=== PATIENT | female | born 1965 | race Two or more races ===

== ENCOUNTER 2025-04-25 08:52 | Outpatient (AMB) | payer OTHER, SELFPAY ==
--- OUTSIDE RECORDS SUMMARY | 2025-04-25 09:24 | XMS_ITS | Data Portability ---
Author Organization BEATRICE Kedar Howard [facility], [facility] [place] Address [address] [place] [address] Care Team Providers Care Breast Splitter Name Role Phone [facility] Primary Care Provide r Assessment Encounter Date Assessment Date Assessment LastModified by Organization Details LastModified Time 12/14/2024 12/14/2024 Assessment: Making steady improvements but still noted weakness with hip ABD. Improving step mechanics with slightly decreased antalgia with gait Plan: Continue with PT at 2x/week focusing on decreasing pain, improving ROM, strength, optimizing gait and stair mechanics, and mobility for functional ADL's. [email or web address] Not available 12/14/2024 10:38:13 12/16/2024 12/16/2024 Assessment: Making steady improvements but still noted weakness with hip ABD. Improving step mechanics with slightly decreased antalgia with gait. improving SLS balance Plan: Continue with PT at 2x/week focusing on decreasing pain, improving ROM, strength, optimizing gait and stair mechanics, and mobility for functional ADL's. [email or web address] Not available 12/16/2024 10:19:22 12/21/2024 12/21/2024 Assessment: Making good steady progress improving ROM and functional strength, some rigidity and cautiousness with stairs but able to asc/desc safely Plan: Continue with PT at 2x/week focusing on decreasing pain, improving ROM, strength, optimizing gait and stair mechanics, and mobility for functional ADL's. [email or web address] Not available 12/21/2024 09:43:49 12/23/2024 12/23/2024 Assessment: Making good steady progress improving ROM and functional strength, some rigidity and cautiousness with stairs but able to asc/desc safely Plan: Continue with PT at 2x/week focusing on decreasing pain, improving ROM, strength, optimizing gait and stair mechanics, and mobility for functional ADL's. Finish out Appts [email or web address] Not available 12/23/2024 09:35:56 Plan of Treatment Reminders Order Date Submit Date Provider Last Modified By Organization Details Last Modified Time Details Appointments None recorded. Lab None recorded. Referral None recorded. Procedures None recorded. Surgeries None recorded. Imaging XR, shoulder, 2 or more view - room 215 bilateral shoulder/ lateral [facility]24 [facility]25 [facility] [address], [place], [address], 5 15:29:39 XR, cervical spine, 1 view - room 215 lateral cervical 2024 025 [facility], [address], [address], [place], [address], 5 15:29:39 Medication Orders None recorded. Patient TargetsNo targets recorded. Patient InstructionsNo instructions recorded. Reason for Referral None Reported. Results Created Date Observation Date Name Description Value Unit Range Abnormal Flag Note LastModifiedBy Organization Detail LastModifiedTime 12/03/19 25 12/03/2024 XR, knee, 4 or more view [email or web address]:/ [email or web address] ?Encry pted=s hAaTro YD8dLq bEUv6g %2BXZw aYqtaq 0bqfl% 2Fg9IQ a4ajBk vP9nXo QUaueC m3YtLR FvZlgJ JJ8mAn HZtai3 5o6888 AC0Kqb H%2BGU 6ShKiQ trMwF INTERFACE [facility] [address], [place], [address], 12/03/2024 08:28:10 12/03/19 25 12/03/2024 XR, knee, 4 or more view [email or web address] ?Encry pted=s hAaTro YD8dLq bEUv6g %2BXZw aYqtaq 0bqfl% 2Fg9IQ a4ajBk vP9nXo QUaueC m3YtLR FvZlg JJ8[place] HZtai3 8p4363 AC0Kqb H%2BGU 6ShKiQ trMwF INTERFACE [facility] [address], [place], [address], 12/03/2024 08:28:12 12/06/19 25 12/06/2024 XR, hip + pelvi s, bilat eral, 2 view [email or web address]:/ [email or web address] ?Encry pted=s hAaTro YD8dLq bEUv6g %2BXZw aYqtaq 0bqfl% 2Fg9IQ a4ajBk vP9nXo QUaueC m3YtLR FvZlg JJ8[place] HZtai3 6v9140 AC0Kqb H6HUqK uKiQtr MwF INTERFACE [facility] [address], [place], [address], 12/06/2024 10:12:31 12/06/19 25 12/06/2024 XR, hip + pelvi s, bilat eral, 2 view [email or web address] ?Encry pted=s hAaTro YD8dLq bEUv6g %2BXZw aYqtaq 0bqfl% 2Fg9IQ a4ajBk vP9nXo QUaueC m3YtLR FvZl JJ8mAn HZtai3 1g3446 AC0Kqb H6HUqK uKiQtr MwF INTERFACE [facility] [address] [facility], [place], [address], 12/06/2024 10:12:33 03/22/20 25 03/22/2025 XR, marizta castellanos, 2 or more view http:/ [email or web address] ?Encry pted=s hAaTro YD8dLq bEUv6g %2BXZw aYqtaq 0bqfl% 2Fg9IQ a4ajBk vP9nXo QUaueC m3YtLR FvZlgJ [facility] Hospital[facility] 6u9902 AC0Kla 3%2BNU KuhKiQ trMwF INTERFACE [facility] [address], [place], [address], 03/22/2025 10:02:52 03/22/20 25 03/22/2025 XR, maritza jasmin, 2 or more view [email or web address]:/ [email or web address] ?Encry pted=s hAaTro YD8dLq bEUv6g %2BXZw aYqtaq 0bqfl% 2Fg9IQ a4ajBk vP9nXo QUaueC m3YtLR FvZlgJ JJ8[place] HZtai3 3f6395 AC0Kla 3%2BNU KuhKiQ trMwF INTERFACE [facility] [address], [place], [address], 03/22/2025 10:02:54 03/22/20 25 03/22/2025 XR, cervi chiquis spine , 1 view [email or web address]:/ [email or web address] ?Encry pted=s hAaTro YD8dLq bEUv6g %2BXZw aYqtaq 0bqfl% 2Fg9IQ a4ajBk vP9nXo QUaueC m3YtLR FvZl46 [address] Streettai3 3x5029 AC0Kla 3%2BNU KuuKiQ trMwF INTERFACE [facility] [address], [place], [address], 03/22/2025 10:03:20 03/22/20 25 03/22/2025 XR, cervi chiquis spine , 1 view [email or web address]:/ [email or web address] ?Encry pted=s hAaTro YD8dLq bEUv6g %2BXZw aYqtaq 0bqfl% 2Fg9IQ a4ajBk vP9nXo QUaueC m3YtLR FvZlgJ JJ8mAn HZtai3 3j3130 AC0Kla 3%2BNU KuuKiQ trMwF INTERFACE [facility] [address] [facility] [address], [place], [address], 03/22/2025 10:03:22 Result Notes Documentation Provider Name and Address Organization Details Recorded Time Xr, Shoulder, 2 Or More View : [email or web address]? Encrypted=crTgMsnQH0lThfW Uv6g%2PNOjdWmzcj1owfb%2Fg 3IPe5daCjsT6rDuTKrpuEb2Qa RWViPluRCX7lAhEZzpu06i450 9VW6Tmu1%2BNUKuhKiQtrMwF Not Available [facility] 03/22/2025 10:0 2:53 Xr, Shoulder, 2 Or More View : [email or web address]? Encrypted=swCyVtfOS1aKtiG Uv6g%2OFXmfMcmfr1jcjh%2Fg 5LBi2szQllF3sTfIZdboWg0Kg VYVkTckOGJ2mPqSEibg81e494 3FX6Mdl1%2BNUKuhKiQtrMwF Not Available [facility] 03/22/2025 10:0 2:55 Xr, Cervical Spine, 1 View : [email or web address]? Encrypted=dlDnCdnYT8qCnkP Uv6g%0LMVybAwojp3wswh%2Fg 7HFm7gbIybD5qGnFAqpyYz4Xf SJZpLqvUQY6nBcPSvuw78j256 7ZN4Qps2%2BNUKuuKiQtrMwF Not Available [facility] 03/22/2025 10:0 3:21 Xr, Cervical Spine, 1 View : [email or web address]? Encrypted=gyGcFllCX6lZwbF Uv6g%6RZMacAoiyt0syrt%2Fg 6BIj4fwHqaA1lWgILiqiNj1Ab KMMzLfrGZB6eGaLKoyc77v067 4MK6Xfc8%2BNUKuuKiQtrMwF Not Available [facility] 03/22/2025 10:0 3:22 Problems Name Problem SNOMED Code Status Onset Date Resolution Date Notes Provider Name and Address Organization Details Recorded Time No complaints 813086241 Active Status : 'A'; Not Available [facility] 4 09:12:15 Pain of shoulder region 43721891 Active 2024 Jerel Malik PA-C [address], [place], [address] , [facility] 5 09:51:56 Problem Notes None recorded. Procedures Surgical History Date Name Laterality Status Provider Name and Address Organization Details Recorded Time 5 44864 Therapeutic Exercise (1:1) completed Peri Ponce PTA [address], [place], [address], [facility] 12/14/2024 18:26:56 5 69175: Gait training completed Peri Ponce PTA [address], [place], [address], [facility] 12/14/2024 18:26:56 5 80718 Therapeutic Exercise (1:1) completed Peri Ponce PTA [address], [place], [address], [facility] 12/13/2024 07:01:17 5 63089: Gait training completed Peri Ponce PTA [address], [place], [address], [facility] 12/13/2024 07:01:17 5 09885 Therapeutic Exercise (1:1) cancelled Peri Ponce PTA [address], [place], [address], [facility] 12/07/2024 18:16:19 02/06/202 5 85780: Gait training cancelled Peri Ponce ESTIMATOR AND DRAFTER [address], [place], [address], [facility] 12/07/2024 18:16:19 TOMY INJ Andrew completed Stewart Linares PA-C [address], [place], [address], [facility] 12/03/2024 08:37:11 5 97442 Therapeutic Exercise (1:1) completed Peri Kris ESTIMATOR AND DRAFTER [address], [place], [address], [facility] 11/30/2024 14:30:40 5 94197: Gait training completed Peri Ponce ESTIMATOR AND DRAFTER [address], [place], [address], [facility] 11/30/2024 14:30:40 5 56531 Therapeutic Exercise (1:1) completed Peri Kris ESTIMATOR AND DRAFTER [address], [place], [address], [facility] 11/29/2024 07:07:43 5 86447: Gait training completed Peri MALENA Ponce [address], [place], [address], [facility] 11/29/2024 07:07:43 5 22492 Therapeutic Exercise (1:1) completed Peri Kris ESTIMATOR AND DRAFTER [address], [place], [address], [facility] 11/24/2024 10:39:30 20085: Gait training completed Perijuan Ponce ESTIMATOR AND DRAFTER [address], [place], [address], [facility] 11/24/2024 10:39:30 5 68915 Therapeutic Exercise (1:1) cancelled Peri Ponce, ESTIMATOR AND DRAFTER [address], [place], [address], [facility] 11/18/2024 18:34:48 5 03754: Gait training cancelled Peri MALENA Ponce [address], [place], [address], [facility] 11/18/2024 18:34:48 5 05165 Therapeutic Exercise (1:1) completed Peri Ponce PTA [address], [place], [address], [facility] 11/16/2024 14:37:55 5 93991: Gait training completed Peri Ponce PTA [address], [place], [address], [facility] 11/16/2024 14:37:55 5 36738 Therapeutic Exercise (1:1) completed Peri Ponce PTA [address], [place], [address], [facility] 11/15/2024 06:50:34 5 92398: Gait training completed Peri Ponce PTA [address], [place], [address], [facility] 11/15/2024 06:50:34 5 84586 Therapeutic Exercise (1:1) completed Nain Romero PT [address], [place], [address], [facility] 11/07/2024 18:28:21 5 24208: Gait training completed Nain Romero PT [address], [place], [address], [facility] 11/07/2024 18:28:21 5 65558 Therapeutic Exercise (1:1) completed Nain Romero PT [address], [place], [address], [facility] 11/07/2024 17:07:38 5 19528: Gait training completed Nain Romero PT [address], [place], [address], [facility] 11/07/2024 17:07:51 4 49272 Therapeutic Exercise (1:1) completed NISH StokesT [address], [place], [address], [facility] 11/02/2024 10:05:23 4 99047: Low complexity PT Eval completed Victorino Verde DPMario [address], [place], [address], [facility] 11/02/2024 10:05:25 4 41543 Therapeutic Exercise (1:1) completed Nain Romero PT [address], [place], [address], [facility] 09/14/2024 12:20:32 4 26271: Low complexity PT Eval completed Nain Romero PT [address], [place], [address], [facility] 09/14/2024 12:20:35 4 JZHip completed Mp Vela PA-C [address], [place], [address], [facility] 07/13/2024 07:49:14 4 Hip Kenalog Injection, L/R w/US completed Mp Vela PA-C [address], [place], [address], [facility] 02/04/2024 15:44:33 Imaging Results None recorded. Procedure Notes None recorded. Medical Equipment None Reported. Allergies No known drug allergies Medications Name Sig Start Date Stop Date Status Note LastModified by Organization Details LastModified Time amoxicillin 500 mg capsule 4 pills 1 hour prior to procedure 2024 active Not Available Not Available Not Avai lable Vitamin B-2 100 mg tablet TAKE 2 TABLETS BY MOUTH TWICE DAILY WITH MEALS FOR HEADACHE active Not Available Not Available No t Available atorvastati n 20 mg tablet TAKE 1 TABLET BY MOUTH EVERY DAY active Not Available Not Available No t Available trazodone 50 mg tablet TAKE 1 TO 2 TABLETS BY MOUTH AT BEDTIME NEEDED FOR SLEEP 10/26 completed Not Available Not Available Not Available triamcinolo ne acetonide 0.5 % topical cream APPLY TOPICALLY TO THE AFFECTED AREA TWICE DAILY active Not Available Not Available No t Available cetirizine 10 mg tablet TAKE 1 TABLET BY MOUTH EVERY DAY active Not Available Not Available No t Available ondansetron HCl 4 mg tablet TAKE 1 TABLET BY MOUTH EVERY 8 HOURS NEEDED FOR NAUSEA 02/04 completed Not Available Not Available Not Available Medrol (Alpesh) 4 mg tablets in a dose pack take as directed 08/10 completed Not Available Not Available Not Available prednisone 20 mg tablet TAKE 3 TABLETS BY MOUTH EVERY DAY FOR 2 DAYS 02/04 completed Not Available Not Available Not Available cromolyn 4 % eye drops INSTILL 1 DROP INTO AFFECTED EYE FOUR TIMES A DAY active Not Available Not Available No t Available sumatriptan 50 mg tablet TAKE 1 TABLET BY MOUTH NEEDED FOR MIGRAINE. MAY REPEAT DOSE UP TO 1 TIME AFTER 2 HOURS NEEDED 10/26 completed Not Available Not Available Not Available valacyclovi r 500 mg tablet TAKE 1 TABLET BY MOUTH DAILY 10/26 completed Not Available Not Available Not Available sulfamethox azole 800 mg-trimetho prim 160 mg tablet TAKE 1 TABLET BY MOUTH TWICE DAILY 02/04 completed Not Available Not Available Not Available tramadol 50 mg tablet Take 1-2 tablets every 8 hours as needed for mild to moderate pain. 2024 active Not Available Not Available Not Avai lable acetaminoph en 500 mg tablet TAKE 1 TABLET BY MOUTH EVERY 6 HOURS NEEDED active Not Available Not Available No t Available Celebrex 200 mg capsule Take 1 capsule every day by oral route as directed for 33 days. 2023 active Not Available Not Available Not Avai lable oxycodone-a cetaminophe n 5 mg-325 mg tablet TAKE 1 TABLET BY MOUTH EVERY 4-6 HOURS NEEDED FOR PAIN. 02/04 completed Not Available Not Available Not Available famotidine 20 mg tablet TAKE 1 TABLET BY MOUTH DAILY AT BEDTIME NEEDED active Not Available Not Available No t Available magnesium oxide 400 mg (241.3 mg magnesium) tablet TAKE 1 TABLET BY MOUTH DAILY NEEDED active Not Available Not Available No t Available trazodone 100 mg tablet TAKE 1 TO 2 TABLETS BY MOUTH AT BEDTIME NEEDED FOR SLEEP active Not Available Not Available No t Available omeprazole 20 mg capsule,del ayed release TAKE 1 CAPSULE BY MOUTH TWICE DAILY 30 MINUTES BEFORE A MEAL active Not Available Not Available No t Available hydroxyzine HCl 25 mg tablet TAKE 1 TO 2 TABLETS BY MOUTH TWICE DAILY NEEDED FOR SLEEP OR ANXIETY active Not Available Not Available No t Available polyethylen e glycol 3350 17 gram/dose oral powder TAKE 1 SCOOP MIXED WITH 8 OUNCES OF FLUID ONCE A DAY active Not Available Not Available No t Available estradiol 0.01% (0.1 mg/gram) vaginal cream USE 1 GRAM VAGINALLY EVERY NIGHT FOR 2 WEEKS THEN USE VAGINALLY 2 TIMES EVERY WEEK active Not Available Not Available No t Available albuterol sulfate HFA 90 mcg/actuati on aerosol inhaler INHALE 2 PUFFS BY MOUTH EVERY 4 HOURS FOR 16 DAYS 08/10 completed Not Available Not Available Not Available ondansetron 4 mg disintegrat ing tablet DISSOLVE 1 TABLET ON THE TONGUE EVERY 8 HOURS FOR 3 DAYS NEEDED FOR NAUSEA OR VOMITING 10/26 completed Not Available Not Available Not Available topiramate 100 mg tablet TAKE 1 TABLET BY MOUTH TWICE DAILY active Not Available Not Available No t Available fluticasone propionate 50 mcg/actuati on nasal spray,suspe nsion active Not Available Not Available Not Available simethicone 80 mg chewable tablet TAKE 1 TABLET BY MOUTH FOUR TIMES DAILY AFTER MEALS AND AT BEDTIME NEEDED FOR GAS active Not Available Not Available No t Available oxycodone 5 mg tablet Take 1 tablet every 8 hours as needed for severe pain. 2024 active Not Available Not Available Not Avai lable escitalopra m 10 mg tablet TAKE 1 AND 1/2 TABLETS BY MOUTH EVERY DAY active Not Available Not Available No t Available escitalopra m 20 mg tablet TAKE 1 TABLET BY MOUTH DAILY active Not Available Not Available No t Available cyclobenzap rine 5 mg tablet TAKE 1 TABLET BY MOUTH THREE TIMES DAILY FOR 10 DAYS NEEDED active Not Available Not Available No t Available escitalopra m 5 mg tablet TAKE 1 TABLET BY MOUTH EVERY DAY 02/04 completed Not Available Not Available Not Available trospium 20 mg tablet TAKE 1 TABLET BY MOUTH TWICE DAILY 10/26 completed Not Available Not Available Not Available Flovent HFA 220 mcg/actuati on aerosol inhaler INHALE 1 PUFF BY MOUTH TWICE DAILY active Not Available Not Available No t Available Symbicort 80 mcg-4.5 mcg/actuati on HFA aerosol inhaler INHALE 2 PUFFS BY MOUTH ONCE DAILY TAKE 1 PUFF BY MOUTH EVERY 6 HOURS IF NEEDED MAX OF 6 PUFFS PER DAY active Not Available Not Available No t Available trospium ER 60 mg capsule,ext ended release 24 hr TAKE 1 CAPSULE BY MOUTH DAILY IN THE MORNING active Not Available Not Available No t Available diclofenac 1 % topical gel APPLY 2-3 GRAMS TO FOOT/JUAN THREE TIMES DAILY active Not Available Not Available No t Available Align (B.infantis ) 4 mg capsule TAKE 1 CAPSULE BY MOUTH EVERY DAY active Not Available Not Available No t Available oxycodone HCl-oxycodo ne-ASA 1 every 4 - [address] WHILE TAKING THIS MEDICATIO N 06/25 completed Statu s: 'Disc ontin ued'; Not Available Not Available Not Available GaviLyte-G 236 gram-22.74 gram-6.74 gram-5.86 gram oral solution MIX AND DRINK DIRECTED active Not Available Not Available No t Available Myrbetriq 25 mg tablet,exte nded release TAKE 1 TABLET BY MOUTH DAILY active Not Available Not Available No t Available Vitals Date Recorded Body height Body mass index (BMI) Body weight Provider Name and Address Organization Details Last Updated DateTime 03/22/2025 172.72 cm 30.4 kg/m2 50311.47 g Jerel Malik PA-C [address] [facility] [address], [place], [address], [place] [facility] 03/22/2025 09:51:25 Social History Question Answer Notes LastModified by Organizat ion Details LastModified Time Tobacco Smoking Status Never Smoker SHALINI hussein [place] [facility] 02/05/2024 08:42:53 What Is Your Relationship Status? Single Information not available 02/05/2024 Sex: Unknown Functional Status Question Answer Note LastModified by Organizat ion Details LastModified Time Do you use any illicit or recreational drugs? No Information not available 02/05/2024 Do you or have you ever used any other forms of tobacco or nicotine? No Information not available 02/05/2024 What is your level of alcohol consumption? None Information not available 02/05/2024 Mental Status None recorded. Family History Nothing Reported. Medical History Condition Response Coronary Artery Disease N Anxiety/Depression Y Emphysema N COPD N Pacemaker N Vascular Disease N Gastrointestinal Disease N Autoimmune disease N Orthotics N Arthritis Y Blood Clot N Acid Reflux (GERD) Y Cancer N Stroke N Rheumatoid Arthritis N Arrhythmia N Fibromyalgia N Allergies/Hayfever Y Thyroid Problems N Kidney/Bladder Problems N Anemia N Heart Attack ([place]) N Diabetes N Bleeding Disorder N Seizures/Epilepsy N AIDS/HIV N Congestive Heart Failure (CHF) N Asthma Y Peripheral Vascular Disease N Sleep Apnea N Hepatitis Y Heart Disease N Pulmonary Embolism N Hypertension N Osteoporosis N Gynecological HistoryNo gynecological history recorded. Obstetrics History GPAL:G 0 P 0 0 0 0 Past Encounters Encounter ID Performer Location Encounter Start Date Encounter Closed Date Diagnosis/Indication Diagnosis SNOMED-CT Code Diagnosis ICD10 Code Diagnosis Note [id number] PRATIBHA [facility] [address] [place] [address] 02/05/2024 08:21:26 02/05/2024 09:23:44 Osteoarthritis of left hip joint 1959739842 10216 M16.12 [id number] PRATIBHA Valenzuela [address] [place] [address] 03/04/2024 11:10:27 03/24/2024 16:17:15 Osteoarthritis of left hip joint 2562139008 37944 M16.12 [id number] PRATIBHA Valenzuela [address] [place] [address] 05/07/2024 08:58:41 06/16/2024 07:17:58 Osteoarthritis of left hip joint 8270647550 23861 M16.12 [id number] Mp Dane, PA-C [facility] [address] [place] [address] 07/13/2024 10:37:18 08/05/2024 15:51:04 Osteoarthritis of left hip joint 7359820697 78287 M16.12 [id number] Jerel Ospina MD [facility] [address] [place] [address] 08/10/2024 11:43:57 09/02/2024 12:57:29 Osteoarthritis of left hip joint 3660776406 26798 M16.12 [id number] Nain Romero, PT [facility] [address] [place] [address] 09/14/2024 13:09:05 09/14/2024 13:59:39 Osteoarthritis of hip 636053538 6.12 [id number] Alexy Sanches, WINDOWS SOFTWARE ENGINEER [facility] [address] [place] [address] 10/06/2024 07:55:31 11/05/2024 04:07:05 Osteoarthritis of left hip joint 6839039967 42648 M16.12 [id number] Victorino Verde , DPT [facility] [address] [place] [address] 11/01/2024 11:04:18 11/01/2024 12:03:44 Aftercare [id number] Z47.1 Z96.744 [id number] Alban Sanchez PA-C [facility] [address] [place] [address] 11/02/2024 08:37:29 11/17/2024 15:11:57 History of repair of hip joint 354895742 Z96.282 [id number] Nain Romero, PT [facility] [address] [place] [address] 11/05/2024 13:00:30 11/05/2024 15:52:03 Aftercare [id number] Z47.1 Z96.527 [id number] Nain Romero, PT [facility] [address] [place] [address] 11/08/2024 12:36:15 11/09/2024 06:47:07 Aftercare [id number] Z47.1 Z96.024 [id number] Peri Ponce, ESTIMATOR AND DRAFTER [facility] [address] [place], [place] [address] 11/16/2024 12:14:03 11/16/2024 13:06:48 Aftercare [id number] Z47.1 Z96.904 [id number] Peri Ponce, ESTIMATOR AND DRAFTER [facility] [address] [place], [place] [address] 11/18/2024 11:22:31 11/18/2024 12:18:38 Aftercare [id number] Z47.1 Z96.174 [id number] Peri Ponce, ESTIMATOR AND DRAFTER [facility] [address] [place] [address] 11/26/2024 09:59:08 11/26/2024 10:25:01 Aftercare [id number] Z47.1 Z96.383 [id number] Peri Ponce, ESTIMATOR AND DRAFTER [facility] [address] [place] [address] 11/30/2024 11:26:09 11/30/2024 13:31:09 Aftercare [id number] Z47.1 Z96.980 [id number] Peri Ponce, ESTIMATOR AND DRAFTER [facility] [address] [place] [address] 12/02/2024 11:32:11 12/02/2024 12:53:43 Aftercare [id number] Z47.1 Z96.155 [id number] Stewart Linares PA-C [facility] [address] [place] [address] 12/03/2024 08:15:35 12/16/2024 15:38:48 Pain of knee region [id number] M25.561 M25.269 [id number] Jerel Ospina MD [facility] - [facility] [address] [place] [address] 12/06/2024 09:28:29 12/16/2024 09:10:28 History of repair of hip joint [id number] Z96.250 [id number] Peri Ponce ESTIMATOR AND DRAFTER [facility] [address] [place] [address] 12/14/2024 09:19:24 12/14/2024 11:49:30 Aftercare [id number] Z47.1 Z96.111 [id number] Peri Ponce ESTIMATOR AND DRAFTER [facility] [address] [place] [address] 12/16/2024 09:28:06 12/16/2024 10:29:43 Aftercare [id number] Z47.1 Z96.864 [id number] Peri Ponce ESTIMATOR AND DRAFTER [facility] [address] [place] [address] 12/21/2024 08:51:50 12/21/2024 11:16:56 Aftercare [id number] Z47.1 Z96.404 [id number] Peri Ponce ESTIMATOR AND DRAFTER [facility] [address] [place] [address] 12/23/2024 08:46:23 12/23/2024 09:52:40 Aftercare [id number] Z47.1 Z96.264 [id number] Jerel Malik PA-C [facility] [address] [place] [address] 03/22/2025 09:27:13 03/24/2025 15:29:39 Pain of shoulder region [id number] M25.511 M25.512 Health Concerns Section Related Observation LastModified by Organization Detai ls LastModified Time None Recorded Concern Status LastModified by Organization Details LastModified Time None Recorded Advance Directives Directive None Recorded Payers Insurance Date Sequence Insurance Name Policy Number Policy Witt Covered Member ID Witt Member ID Guarantor Name 03/22/2025 1 [facility] - DOS ON OR AFTER 2023 - ONE CARE (MEDICARE REPLACEMENT/ADV ANTAGE - HMO) Eryn Quiñonez [id number] Eryn Quiñonez Notes Date Note Type Note Provider Name and Address Organization Details Recorded Time 12/14/2024 text/html Pt reports 3/10 px in hip. Saw , happy with progress and will see her for an annual appt.Pt reports she is still having difficulty with sleeping on L hip and desc stairs. Peri Ponce ESTIMATOR AND DRAFTER [address], [place], [address], [facility] 12/14/2024 10:38:32 12/16/2024 text/html Pt reports 2/10 px in hip. Saw , happy with progress and will see her for an annual appt.Pt reports she is still having difficulty with sleeping on L hip and desc stairs. Pt appears more motivated this week after f/u for PT and to cont progressing. Peri Ponce ESTIMATOR AND DRAFTER [address], [place], [address], [facility] 12/16/2024 10:19:40 12/21/2024 text/html Pt reports 2/10 px in hip with some stiffness today.Pt reports she is still having difficulty with sleeping on L hip and desc stairs. Peri PonceMALENA [address], [place], [address], [facility] 12/21/2024 09:44:51 12/23/2024 text/html Pt reports 2/10 px in hip with some stiffness today.Pt reports she is still having difficulty with sleeping on L hip and desc stairs. Notes her knees have been more bothersome lately. Peri Burtonbouchra ESTIMATOR AND DRAFTER [address], [place], [address], [facility] 12/23/2024 09:36:57 03/22/2025 text/html I am seeing this patient under the supervision of Dr. Tyler of who was available but did not see the patient. HPI: Patient is a 59-year-old female who comes to the office today for evaluation of acute onset bilateral upper extremity pain. She reports symptoms initiated in her neck now with further into both arms exacerbated with motions to the left and right into the periscapular region. She has had an MRI scan in 2022 machine. Treating patient on my colleagues historically. She comes in today with complaints of bilateral shoulder symptoms involving consultation specifically regarding the component of her shoulder pain. PFMSH and ROS has been reviewed, updated, and signed by me and is located in the patient s chart. PHYSICAL EXAMINATION: The patient is well appearing and in no apparent distress. Alert and oriented x 3. Gait is symmetric. Examination of the right shoulder findings include: ROM forward elevation 175 , external rotates 35 , internal rotates to back pocket, 4/5 strength including rotator cuff and periscapular musculature. Good Muscle bulk and strength without atrophy. No evidence of instability of the shoulder. Positive impingement signs. Moderate AC joint tenderness, Mild tenderness within the bicipital groove. Negative Speed's, Negative O'briens, Negative Jayson tests. Left shoulder exam demonstrates restricted range of motion with forward elevation to 140 degrees extremities 20 degrees internal 20 pocket with pain, rotator cuff strength 4+/5. Cervical ROM Restricted in all planes, positive Spurling's maneuver tenderness palpation cervical Doppler. No erythema, no redness, no warmth. Peripheral, vascular, lymphatic examination, skin, neurological, coordination, reflexes, sensation are within normal limits. X-RAY REPORT: X-rays were ordered, obtained and independently reviewed today at [facility]. Four views of the right shoulder demonstrate type II acromion cystic changes greater tuberosity well-preserved glenohumeral joint. Left shoulder x-rays 4 views demonstrate early glenohumeral arthritis with appropriate humeral head osteophyte. Lateral C-spine x-ray shows advanced degenerative changes C5-6 and C6-7. IMPRESSION: #1. Left shoulder glenohumeral joint arthritis 2. Right shoulder impingement with rotator cuff tendinitis. 3. Cervical radiculopathy with degenerative cervical spine disease discussed treatment options today. PLAN: Recommend decision made to refer her to outpatient physiatry for consultation to discuss recommendation for injection. She has attended physical therapy in the past I think the pain response to injection consider candidacy for cervical spine surgical referral. [facility] speech recognition leaf conditioner software was used to create portions of this document. An attempt at proofreading has been made to minimize errors. Please call for corrections. Jerel Malik PA-C [address] [place] [address] Suite [facility], [place], [address], [facility] 03/22/2025 11:07:50 OBGyn Episode No OBEpisode recorded.
--- NOTE | 2025-04-25 13:41 | A.OFFVIS_ITS ---
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 Allergies Seasonal Allergies Allergy (Mild, Verified 04/25/25 13:41) Unknown Medication List - Last Reconciled 04/25/25 by Duglas Caballero MD acetaminophen (Tylenol Extra Strength) 500 mg PO Q6H PRN albuterol sulfate 90 mcg/actuation 2 puffs inhalation Q6H PRN atorvastatin 20 mg PO DAILY bupropion HCl SR (Wellbutrin SR) 100 mg PO DAILY cyclobenzaprine 5 mg PO BEDTIME escitalopram oxalate 20 mg PO DAILY famotidine 40 mg PO DAILY fremanezumab-vfrm (Ajovy) 675 mg subcut [id number] hydroxyzine HCl 25 mg PO BID PRN omeprazole 20 mg PO DAILY sennosides (senna) 8.6 mg PO DAILY sumatriptan succinate 100 mg PO Q2-4H PRN trospium ER 60 mg PO DAILY HPI 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: Details: Start time: 1.34pm, End time: 2.09pm ?I spent 40 minutes speaking with the patient on the phone plus an additional 5 minutes reviewing and updating records for a total of 45 minutes HPI Comments Details: Previous weight loss efforts: Slimfast shakes, self diets Wakes up: 5am, Sleeps: 9pm Breakfast: 6-7am (crackers) Lunch: skips Dinner: skips Snacks: 2 snacks per day (peanut butter, crackers, pretzels) Exercise: Stepper (does not track calories) Beverages: Coffee (3 cups/d with 1% milk with stevia), tea: none, soda: occasional Coke zero, juice: none, ETOH: none PFSH Medical History (Updated 04/25/25 @ 14:07 by Duglas Caballero MD) Anxiety Depression Migraines Fibromyalgia Hyperlipidemia GERD (gastroesophageal reflux disease) Asthma Obesity Normal esophagogastroduodenoscopy (EGD) Surgical History (Updated 04/08/25 @ 08:50 by Araceli Mathews CMA) Hx of colonoscopy Hx of breast reduction, elective History of left hip replacement Hx of hysterectomy Hx of toe surgery Hx of tubal ligation Family History (Updated 04/08/25 @ 08:49 by Araceli Mathews CMA) Father Diabetes HTN (hypertension), malignant Mother HTN (hypertension), malignant Telehealth Telehealth Telehealth Platform: Telephone Location of provider rendering services: practice address Location of patient: address on file Patient Identification confirmed using: Name, : Yes Telehealth method: voice only Patient verbally consented to treatment: Yes Patient verbally consented to billing insurance company: Yes Patient informed of any privacy concerns related to visit: Yes Minutes spent on Phone/Video with Pt.: 45 Assessment & Plan Assessment & Plan (1) Obesity: Code(s): E66.9 - Obesity, unspecified Category: Medical Qualifiers: Obesity type: due to excess calories Obesity classification: adult class 1 (BMI 30 - 34.9) Serious obesity comorbidity presence: without serious comorbidity Body mass index: BMI 31.0-31.9 Qualified Code(s): E66.811 - Obesity, class 1; E66.09 - Other obesity due to excess calories; Z68.31 - Body mass index [BMI] 31.0-31.9, adult Plan: 1. We discussed in detail the available therapeutic options: 1) our lifestyle intervention program that has an average weight loss of 10% in 3 months.? 2) Weight loss medications. We also discussed that you can self pay for the first 3 months and the cost is $399 for the first month and $499 for any other month thereafter. 3) Her insurance will not cover GLP-1 medications or bariatric surgery based on her situation. The patient prefers to to continue on her own and she will contact the office if she needs any further assistance
== END 2025-04-25 14:10 | disposition home or self-care (01) ==
LOC: HO.HBS 08:52
PROVIDERS: PCP Registered Nurse; Visit Provider Surgery
DX: E66.811 Obesity, class 1 (principal); E66.09 Other obesity due to excess calories; Z68.31 Body mass index [BMI] 31.0-31.9, adult
CPT/HCPCS: 99204

== ENCOUNTER 2025-10-20 10:40 | Outpatient (AMB) | payer OTHER, SELFPAY ==
--- NOTE | 2025-10-20 10:46 | A.PHYSOV_ITS ---
Vital Signs 10/20/25 10:47 Height 5 ft 7 in Weight 191 lb BMI 29.9 Intake Visit Reasons: NPV CCA PCP Ref-neck pain & migraines Intake Note: Patient is a 60 year old female in office today as a new patient for neck pain and migraines. Botox is done every 6 weeks at [facility] Drafter Assistant Required: No Allergies Seasonal Allergies Allergy (Mild, Verified 10/20/25 10:45) Unknown HPI Comments Details: History of Present Illness The patient is a 60 year old female presenting with severe shoulder and neck issues. The problem has been ongoing for several months and is progressive, with some days being worse than others. She reports no specific injuries. Her symptoms include trouble sleeping and horrible pain when turning her head to the right, which affects her ability to drive. Past treatments for this issue include acupuncture and physical therapy, the latter of which was discontinued because it was not helping. She recently had an MRI of her neck. The patient has a history of severe fibromyalgia, for which she takes Tylenol and Cymbalta. She has been on Cymbalta for about a month and a half, with the dose recently increased from 30 mg to 60 mg. Her relevant medical history includes carpal tunnel syndrome, though it was not severe enough to warrant surgery. She experiences numbness, tingling, and swelling in her hands, particularly at night, and decreased hand strength, which causes difficulty opening bottles and cans. She also has a history of migraines, which are treated with Botox injections by a neurologist, and reports stress headaches. She has reflux, which precludes the use of anti-inflammatory medications. She reports being more sedentary since the COVID pandemic. Pain Description - Location: Severe pain in the shoulder and neck. - Exacerbating Factors: Pain is worse when turning her head to the right, particularly while driving. - Associated Symptoms: The pain interferes with her sleep. - Severity/Timing: Pain has been progressing over months, and some days are worse than others. - Character: Patient describes the pain as horrible. - Radiation: Patient denies pain traveling down her arm or arms. Results - Imaging: A recent neck MRI from 08/22/2025 was reviewed and generally unremarkable with evidence of neural foraminal narrowing on the right side at the C3-C4 level and C4-C5 level. - Tests and Diagnostics: The patient has been tested for carpal tunnel syndrome in the past, confirming the diagnosis. 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 Neck pain Anxiety Depression Migraines Fibromyalgia Hyperlipidemia GERD (gastroesophageal reflux disease) Asthma Obesity Normal esophagogastroduodenoscopy (EGD) Surgical History Hx of colonoscopy Hx of breast reduction, elective History of left hip replacement Hx of hysterectomy Hx of toe surgery Hx of tubal ligation Family History Father Diabetes HTN (hypertension), malignant Mother HTN (hypertension), malignant Social History Alcohol intake: current Alcohol intake frequency: does not drink Current occupational status: unemployed Review of Systems Narrative Review of Systems - Musculoskeletal: Reports severe shoulder and neck pain, severe fibromyalgia, and bad arthritis in her hands causing weakness. - Neurological: Reports pain upon turning her head to the right. - Reports numbness and tingling in her hands, especially at night. - Reports history of migraines treated with Botox and also reports stress headaches. - Denies pain radiating down her arms. - Constitutional: Reports difficulty sleeping. - Reports being more sedentary. - Gastrointestinal: Reports having reflux. Physical Exam Exam Exam: Physical Exam - Musculoskeletal: Palpation of the neck elicits pain and tingling through the legs. - She reports diminished hand strength. - Neurological: Carpal compression test is positive on the right, reproducing numbness and tingling. Neurological examination of upper extremities was nonfocal. Pain with posterior cervical facet loading. Spurling maneuver was negative. Lhermitte's sign was negative. Patient demonstrated no upper motor neuron signs. Vital Signs: BMI result Body Mass Index 29.9 Assessment & Plan Assessment & Plan (1) Fibromyalgia: Code(s): M79.7 - Fibromyalgia Category: Medical (2) Neck pain: Code(s): M54.2 - Cervicalgia Category: Medical (3) Cervicocranial syndrome: Code(s): M53.0 - Cervicocranial syndrome Category: Medical (4) Spondylosis of cervical region without myelopathy or radiculopathy: Code(s): M47.812 - Spondylosis without myelopathy or radiculopathy, cervical region Category: Medical Plan Pain Management - Affect: The patient reports her pain causes trouble sleeping. - Analgesia: Current medications include Tylenol and Cymbalta 60 mg, the latter of which was recently increased for fibromyalgia. - She receives Botox injections for migraines which she states are effective. - She previously tried acupuncture and physical therapy, but physical therapy was not helpful. - Adverse Effects: She has reflux and cannot take anti-inflammatory medications. - Activities of Daily Living: Her neck pain interferes with driving and sleeping. - She has difficulty with hand function, including opening bottles and cans, due to numbness, tingling, and weakness. - Aberrant Drug Related Behaviors: No aberrant drug-related behaviors were discussed. Plan Patient was informed and verbally consented to the use of an ambient scribe for clinic note documentation during this visit. 1. Chronic Neck And Shoulder Pain The patient's symptoms are attributed to findings on her recent neck MRI, which showed some nerve irritation and arthritis but no indication for surgical intervention. A cervical epidural injection was discussed as a treatment option, but the patient declined, citing a previously unsuccessful hip injection and a preference to avoid it. Instead, she has opted to try a conservative approach with a turmeric supplement, dosed at 2000 mg daily, which must contain black pepper for better efficacy. A follow-up is scheduled in two months to assess her response to this treatment. 2. Fibromyalgia The patient has a history of severe fibromyalgia. She recently increased her duloxetine (Cymbalta) dose to 60 mg, which is considered a standard therapeutic dose for pain, and will continue this regimen. It was noted that it may take a couple of months for the medication to reach its full effect. Her progress will be reassessed at the 2-month follow-up visit. 3. Carpal Tunnel Syndrome The patient has a history of carpal tunnel syndrome, confirmed by prior testing. Her symptoms of hand weakness and inability to open jars are likely attributable to this condition. A repeat nerve test was deferred as she has been tested before. No specific new intervention was planned at this visit. 4. Migraine The patient is under the care of a neurologist for migraines and receives Botox injections, which she finds effective. She will continue with her current management plan under her neurologist. Discussion Notes I informed the patient that her recent neck MRI was not severely abnormal and did not show anything requiring surgery, though there are signs of arthritis and potential nerve irritation. I presented the option of a cervical epidural injection using cortisone, explaining it would be guided by X-ray and that its success is variable. She could also be a candidate for cervical facet injections. As an alternative, we discussed a trial of a turmeric supplement as a natural anti-inflammatory. I recommended a dose of 2000 mg daily and emphasized that the product must contain black pepper to enhance absorption and effectiveness. We also confirmed her recent increase of Cymbalta to 60 mg, which may also provide additional pain relief over time. The patient agreed to this conservative plan, and we will follow up in two months to re-evaluate her symptoms. Patient Instructions - Continue taking Cymbalta (duloxetine) at your current dose of 60 mg per day. - Please be aware that it can take a couple of months to feel the full pain- relieving effects of this medication. - You will start taking a turmeric supplement for its anti-inflammatory effects. - The recommended dose is 2000 mg per day. - Make sure to buy a brand that includes black pepper, as this helps the turmeric work better. - You can start with a lower dose to see how your stomach tolerates it and then gradually increase to the full dose. - We have decided against a neck injection at this time. - Please schedule a follow-up appointment in two months to check on your progress. Coding Level of Care Code New Pt Level 4 ([id number]) Add On Problem Visit Only Diagnoses Fibromyalgia M79.7 Neck pain M54.2 Cervicocranial syndrome M53.0 Spondylosis of cervical region without myelopathy or radiculopathy M47.812
[2025-10-20 10:47] VITALS: BMI 29.9
--- OUTSIDE RECORDS SUMMARY | 2025-10-20 13:37 | XMS_ITS | Clinical Summary ---
Author Organization [employer] Address [address] [place] [address] [address] [place] [address] Care Team Providers Care Extractor Operator Solvent Process Name Role Phone Unavailable Primary Care Provider Unavailabl e Social History Tobacco Use Types Packs/Day Years Used Date Smoking Tobacco: Never Assessed Comments Unknown Sex and Gender Information Value Date Recorded Sex Assigned at Female 09/02/2022 10:24 AM EDT Legal Sex Female 10:24 AM EDT Gender Identity Female 09/02/2022 10:24 AM EDT Sexual Orientation Straight 09/02/2022 10 :24 AM EDT Plan of Treatment Health Maintenance Due Date Last Done Comments CT Colonography 1966 Colonoscopy 1966 Colorectal Cancer Screening 1966 Depression Screening 1966 FIT DNA/Cologuard 1966 FIT 1966 FOBT 1966 Sigmoidoscopy 1966 Disability Screening 1966 Alcohol/Substance Use Screening 1978 Tobacco Screening 1978 Pap Smear 1987 Cervical Cancer Screening 1996 HPV/Cotest 1996 Mammogram 2006 Pneumococcal Vaccine: 50+ Years (2 of 2 - PCV) 2016 09/16/2007 Zoster Vaccines (1 of 2) 2016 DTaP/Tdap/Td Vaccines (1 - Tdap) 08/28/2018 08/27/2018 COVID-19 Vaccine (4 - 2024- season) 2025 10/02/2021, 03/20/2021, 02/26/2021 Influenza Vaccine (#1) 2025 , 09/28/2019, 08/12/2018, Additional history exists RSV Patients and Patients Aged 60 years or older (1 - 1-dose 75+ series) 2041 Hepatitis A Vaccines Aged Out 03/14/2008, 10/16/2007, 09/17/2007 No longer eligible based on patient's age to complete this topic Hepatitis B Vaccines Completed 03/14/2008, 10/16/2007, 09/17/2007 HIB Vaccines Aged Out No longer eligi ble based on patient's age to complete this topic HPV Vaccines Aged Out No longer eligi ble based on patient's age to complete this topic IPV Vaccines Aged Out No longer eligi ble based on patient's age to complete this topic Meningococcal B Vaccine Aged Out No l onger eligible based on patient's age to complete this topic Meningococcal Vaccine Aged Out No jaycob shayy eligible based on patient's age to complete this topic RSV under 20 months Aged Out No longe r eligible based on patient's age to complete this topic Rotavirus Vaccines Aged Out No longer eligible based on patient's age to complete this topic
--- OUTSIDE RECORDS SUMMARY | 2025-10-20 13:37 | XMS_ITS | Encounter Summary ---
Author Organization [employer] [facility] Address [address] [place] [address] [address] [address] Care Team Providers Care Transportation Technician Name Role Phone Unavailable Primary Care Provider Unavailabl e Encounter Details Date Type Department Care Team (Latest Contact Info) Description 03/25/2022 Abstract [facility] CONVERSIONS Dental, Provider, DDS Social History Tobacco Use Types Packs/Day Years Used Date Smoking Tobacco: Never Assessed Comments Unknown Sex and Gender Information Value Date Recorded Sex Assigned at Female 09/02/2022 10:24 AM EDT Legal Sex Female 10:24 AM EDT Gender Identity Female 09/02/2022 10:24 AM EDT Sexual Orientation Straight 09/02/2022 10 :24 AM EDT documented as of this encounter Plan of Treatment Not on file documented as of this encounter Visit Diagnoses Not on filedocumented in this encounter
--- OUTSIDE RECORDS SUMMARY | 2025-10-20 13:37 | XMS_ITS | Encounter Summary ---
Author Organization [employer] [facility] Address [address] [place] [address] [address], [place] [address] Care Team Providers Care Pulp Machine Operator Name Role Phone Unavailable Primary Care Provider Unavailabl e Encounter Details Date Type Department Care Team (Latest Contact Info) Description 08/13/2019 Abstract [facility] CONVERSIONS Dental, Provider, DDS Social History Tobacco [...]
== END 2025-10-20 11:17 | disposition home or self-care (01) ==
LOC: HO.HPHYS 10:41
PROVIDERS: PCP Internal Medicine; Visit Provider Physical Medicine & Rehabilitation
DX: M79.7 Fibromyalgia (principal); M54.2 Cervicalgia; M53.0 Cervicocranial syndrome; M47.812 Spondylosis without myelopathy or radiculopathy, cervical region
CPT/HCPCS: 99204; G2211

== ENCOUNTER → 2025-10-20 10:40 | Outpatient (BNVA) | payer OTHER, SELFPAY | PROVIDERS: PCP Internal Medicine; Visit Provider Physical Medicine & Rehabilitation | DX: M53.0 Cervicocranial syndrome (principal); M47.812 Spondylosis without myelopathy or radiculopathy, cervical region; M79.7 Fibromyalgia; Z79.899 Other long term (current) drug therapy | CPT/HCPCS: 99202 ==